=== PATIENT | male | born 1945 | race Caucasian/White ===

== ENCOUNTER → 2025-02-28 | Outpatient (CLI) | payer MEDICARE ==
--- NOTE | 2025-03-03 18:01 | PE ---
EXAMINATION TYPE: PET CT fusion skull to thigh DATE OF EXAM: 02/28/2025 CLINICAL INDICATION:Male, 79 years old with history of C61 prostate ca; TECHNIQUE: Following the intravenous administration of 6.8 mCi of Ga-68 Illuccix (PSMA), whole body images are performed from the skull vertex to the midthigh. Images are reviewed on the computer in the coronal, axial, and sagittal planes. Reconstructed rotating images are created on independent [employer] and reviewed on the computer. A non-contrast CT is performed in conjunction with the PET scan. CT DLP: 858.4 mGycm, Automated exposure control for dose reduction was used. COMPARISON: CT None, PET/CT None, MRI: None FINDINGS: Mediastinal SUV mean is 1.4. Hepatic parenchyma SUV mean is 5.2. SKULL BASE AND NECK: No suspicious radiotracer activity. CHEST, MEDIASTINUM, AND HILAR REGION: No suspicious radiotracer activity. ABDOMEN AND PELVIS: Mildly enlarged prostate gland measuring 5.0 cm in transverse dimension. There is minimal radiotracer activity within the posterior prostate gland with a max SUV of 4.9 which is at background level. MUSCULOSKELETAL STRUCTURES: No suspicious radiotracer activity. OTHER CT: Bilateral aphakia. Intracranial vascular calcification. Bilateral carotid bulb calcificatio ns. Right palatine tonsilliths. Atherosclerotic calcification of the aorta and its branches. Mild cor onary artery calcifications. Mild bilateral gynecomastia. Tiny hiatal hernia. Exophytic left renal si mple appearing 2.9 cm cyst. No follow-up recommended. Small hiatal hernia. Proximal colonic diverticu lum without evidence for acute diverticulitis. Multilevel degenerative changes of the spine. Mild maverick ateral hip osteoarthritic change. Fusion of the right SI joint. IMPRESSION: Minimal radiotracer activity within the prostate gland which is at background levels. No suspicious r adiotracer activity to suggest metastasis. [facility], , 03/03/2025 5:59 PM
== END | disposition home or self-care (01) ==
LOC: RADPETMAIN 08:31
PROVIDERS: ATTEND Urology
DX: C61 Malignant neoplasm of prostate (principal)
CPT/HCPCS: 78815; A9596

== ENCOUNTER 2025-05-07 08:45 | Day surgery (SDC) | payer MEDICARE ==
--- NOTE | 2025-04-30 11:34 | P.HPIHPCON ---
History of Present Illness H&P Date: 04/30/25 Chief Complaint: Prostate cancer This is an 79-year-old male with history of [place] 7 prostate cancer, he agreed to proceed with radiation therapy. Option of SpaceOAR gel placement was discussed with him. He is aware of the risk which include but not limited to bleeding, infection. Discussed with him potential of developing rectal toxicity even with a SpaceOAR gel. He understood over the risk and agreed to proceed Consent for Procedure: I have explained the operation/procedure to the patient, including the risks, benefits, side effects, alternative therapies (including not receiving the proposed treatment or service), the likelihood of the patient achieving his/her goals, and potential recuperation problems for the procedure/sedation/analgesia, as well as any blood products, if indicated. I also explained to the patient the risks, benefits and side effects of the alternatives, as well as the risks related to not receiving the proposed procedure, care, treatment, or services. Past Medical History Past Medical History: Coronary Artery Disease (CAD), Hyperlipidemia Additional Past Medical History / Comment(s): Pt. had a HI. in 2012. History of Any Multi-Drug Resistant Organisms: None Reported Past Surgical History: Heart Catheterization With Stent, Orthopedic Surgery Additional Past Surgical History / Comment(s): ankle surgery with leonel insertion yrs. ago. Past Anesthesia/Blood Transfusion Reactions: No Reported Reaction Date of Last Stent Placement:: 2012 Past Alcohol Use History: None Reported Past Drug Use History: None Reported - Past Family History Mother Family Medical History: No Reported History Medications and Allergies Home Medications Medication Instructions Recorded Confirmed Type Aspirin 81 mg PO DAILY 10/27/15 10/27/15 History Cholecalciferol [Vitamin D3] 5,000 unit PO DAILY@1200 10/27/15 10/27/15 History Clopidogrel [Plavix] 75 mg PO DAILY 10/27/15 10/27/15 History Isosorbide Mononitrate ER [Imdur] 30 mg PO DAILY 10/27/15 10/30/15 History Losartan Potassium [Cozaar] 25 mg PO HS 10/27/15 10/30/15 History Multivitamin [Men's Multi-Vitamin] 1 each PO DAILY 10/27/15 10/30/15 History Pravastatin Sodium [Pravachol] 20 mg PO HS 10/27/15 10/30/15 History Ubidecarenone [Co Q-10] 200 mg PO DAILY 10/27/15 10/30/15 History Allergies Allergy/AdvReac Type Severity Reaction Status Date / Time bacitracin Allergy Rash/Hives Verified 10/27/15 15:37 [From Neosporin ([id number])] bacitracin zinc Allergy Rash/Hives Verified 10/27/15 15:37 [From Neosporin ([id number])] neomycin sulfate Allergy Rash/Hives Verified 10/27/15 15:37 [From Neosporin ([id number])] polymyxin B Allergy Rash/Hives Verified 10/27/15 15:37 [From Neosporin ([id number])] Surgical - Exam - General no distress, no pain - Eyes normal ocular movement, no pale - ENT normal nares, normal mucosa - Respiratory normal expansion, normal respiratory effort - Abdomen Abdomen: soft, non tender, no distended Assessment and Plan Assessment: OR for SpaceOAR gel placement
[~2025-05-07 08:45] MED LIST: HYDROmorphone 0.5 MG/0.5 ML SYRINGE IVP PRN
[2025-05-07] MEDS: IV FLUID CONTINUATION 1,000 ML IV ONE (09:39)
[2025-05-07 09:51] VITALS: TEMP 97.3
[2025-05-07] MEDS: LACTATED RINGERS 1,000 ML IV SCH (10:03)
[2025-05-07] MEDS: DEXAMETHASONE SOD PHOSPHATE 4 MG/ML 1 ML VIAL IV ONE (10:04)
[2025-05-07] MEDS: ONDANSETRON 4 MG/2 ML VIAL IVP ONE (10:04)
[2025-05-07] MEDS ORDERED: PROPOFOL 10 MG/ML 20 ML VIAL IV ONE (10:24)
[2025-05-07] MEDS ORDERED: LIDOCAINE 1% INJ 10MG/ML (20 ML MDV) ONE (10:24)
[2025-05-07] MEDS: LIDOCAINE 2% INJ 20 MG/ML SQ ONE (10:54)
[2025-05-07 11:05] VITALS: RESP 16
--- NOTE | 2025-05-07 11:12 | P.OP ---
Date of Procedure: 05/07/25 Preoperative Diagnosis: Prostate cancer Postoperative Diagnosis: Same Procedure(s) Performed: Barrigel placement Implants: Barrigel placed in the perirectal fat Anesthesia: MAC Surgeon: Wolfgang Diaz Estimated Blood Loss (ml): 1 Pathology: none sent Condition: stable Disposition: PACU Indications for Procedure: This is an 79-year-old male with history of [place] 7 prostate cancer, he agreed to proceed with radiation therapy. Option of SpaceOAR gel placement was discussed with him. He is aware of the risk which include but not limited to bleeding, infection. Discussed with him potential of developing rectal toxicity even with a SpaceOAR gel. He understood over the risk and agreed to proceed Description of Procedure: The patient was taken to the operating room and placed in the dorsolithotomy position, with his legs supported in Maninder stirrups. The external genitalia was prepped and draped sterilely. The transrectal ultrasound probe was placed intrarectally. The prostate was imaged. The probe was then placed within the stabilizing stand. A spinal needle was advanced under ultrasonic guidance to the level of the urogenital diaphragm, and lidocaine was used to infiltrate the tissues as the needle was withdrawn. Next, the Barrigel needle was passed through the midline of the perineum, 1-2 cm anterior to the anal opening. The needle was slowly advanced under ultrasonic guidance until the needle tip was located within the fat plane between the prostate and rectum, at the level of the mid prostate gland. The needle was confirmed to be midline on the axial imaging. Next the Barrigel was injected perirectal fat, there was excellent separation between the prostate and the rectum, there was no evidence of rectal perforation. Total of 9 ml was injected. Significant distance was created between the prostate and rectum, as desired. It should be noted that at no point was there any concern of rectal perforation. The needle was withdrawn, as well as the transrectal ultrasound probe, and the procedure was terminated. The patient tolerated the procedure well and was taken to the recovery room in stable condition
[2025-05-07 11:38] VITALS: BP 167/85; PULSE 77
== END 2025-05-07 11:59 | disposition home or self-care (01) ==
LOC: OR 08:45
PROVIDERS: ATTEND Urology
DX: C61 Malignant neoplasm of prostate (principal); E78.5 Hyperlipidemia, unspecified; I25.10 Atherosclerotic heart disease of native coronary artery without angina pectoris; I25.2 Old myocardial infarction; Z79.02 Long term (current) use of antithrombotics/antiplatelets; Z79.82 Long term (current) use of aspirin; Z79.899 Other long term (current) drug therapy; Z88.1 Allergy status to other antibiotic agents; Z88.2 Allergy status to sulfonamides; Z88.8 Allergy status to other drugs, medicaments and biological substances
CPT/HCPCS: 55874; J1100; J0690; J2405; J2003 ×2; J2704